=== PATIENT | female | born 1980 | race Caucasian/White ===

== ENCOUNTER 2022-10-24 15:41 | Emergency (ER) | payer BC, SELFPAY ==
[2022-10-24 15:48] VITALS: BP 128/86; PULSE 83; RESP 20; TEMP 36.5; O2SAT 100
--- NOTE | 2022-10-24 17:17 | ED.URI ---
HPI - URI/Sore Throat General Chief Complaint: Upper Respiratory Infection Stated Complaint: Cough/Dizziness Time Seen by Provider: 10/24/22 17:10 Source: patient, RN notes reviewed and old records reviewed Mode of arrival: ambulatory Limitations: no limitations History of Present Illness HPI Narrative: 42 year old female presents to [facility] care with complaints of cough for 3 weeks, fatigue, dizzy at times, throat burning and some sharp chest pain off and on. Patient reports that she has been taking NyQuil, cough drop, and Tylenol for her symptoms. Patient does admit to smoking 1/2 ppd of cigarettes. Patient denies any shortness of breath, any pain to her back or jaw or any nausea or sweating. Patient denies any known fevers chills or sweats or body aches. MD elicited complaint: cough, sore throat and other (dizzy chest hurts) Pertinent past history: other (tobacco abuse) Onset (ago): week(s) (3) Pain scale (0-10): 4 Description of mucous: clear and yellow (light yellow at times) Able to tolerate fluids by mouth: Yes Treatments prior to arrival: acetaminophen and other (NyQuil and halls cough drops) Related Data Home Medications Medication Instructions Recorded Confirmed latanoprost 0.005 % eye drops 1 drp EACH EYE QPM 10/24/22 10/24/22 Allergies Allergy/AdvReac Type Severity Reaction Status Date / Time No Known Allergies Allergy Verified 10/24/22 15:57 Review of Systems Review of Systems: CONSTITUTIONAL: Denies malaise, chills, sweats, or fever. EYES: Denies visual changes, redness, or discharge. ENT: Reports rhinorrhea, congestion, no sinus pain, no otalgia, positive for sore throat. CARDIOVASCULAR:intermittent chest pain especially with cough,,no palpitations, or edema. RESPIRATORY: Reports cough.? Denies dyspnea. GASTROINTESTINAL: Denies abdominal pain, nausea, vomiting, diarrhea SKIN: Denies rash or itching. MUSCULOSKELETAL: Denies myalgia. NEUROLOGIC: Denies headache. All systems reviewed & are unremarkable except as noted in HPI and below PMFSH Past Medical History Medical History (Updated 10/25/22 @ 22:26 by Lynne Warren NP) Glaucoma Surgical History Surgical History (Updated 10/25/22 @ 22:25 by Lynne Warren NP) History of left knee surgery Previous section x3 S/P foot surgery, left Social History Social History (Updated 10/25/22 @ 22:27 by Lynne Warren NP) Smoking packs per day: 0.5 Smoking cigarettes per day: 10.0 Smoking status: Current every day smoker Alcohol intake: current Alcohol use details: social Substance use type: does not use Living arrangements: with family Gender identity (if verbalized by the patient): Female Comments At time of signature, agree with nursing past medical, surgical, social and family history. There is no relevant family history pertinent to the presenting complaint Exam Narrative: GENERAL: Well-appearing, well-nourished, and in no acute distress. HEAD: Normocephalic EYES: PERRLA, conjunctivae clear ENT: Nares clear, turbinates edematous and erythematous, clear discharge. Mucous membranes moist. TM pearly perez with dull light reflex bilaterally; no tragal tenderness. Oropharynx erythematous without lesions. Tonsils not enlarged and without exudate, no drooling, no hoarseness, no trismus, uvula midline.post nasal drainage NECK: Supple. No lymphadenopathy CHEST: Clear to auscultation, breath sounds equal. No wheezing, rhonchi, rales, or stridor. No respiratory distress, speaks in full sentences.cough loose non productive SAO2 100% on room air HEART: Regular rate and rhythm. No murmur heard. no edema or radiation of pain from chest associated with coughing SKIN: Warm, dry, no rash. NEURO: Alert and oriented x3. PSYCH: Normal mood and affect Course Course Emergency Course: Patient is aware of diagnosis, understands and agrees to treatment plan.? Anticipatory guidance given.?
== END 2022-10-24 17:30 | disposition home or self-care (01) ==
PROVIDERS: Emergency Provider Registered Nurse; PCP Family Medicine
DX: R05.3 Chronic cough (principal); F17.210 Nicotine dependence, cigarettes, uncomplicated; H40.9 Unspecified glaucoma
CPT/HCPCS: 99213; G0463